=== PATIENT | male | born 1940 | race Caucasian/White ===

== ENCOUNTER 2016-11-07 16:42 | Emergency (ER) | payer MEDICARE, OTHER | END 2016-11-07 17:39 | disposition home or self-care (01) | LOC: ER 16:42 | PROC: 0HQGXZZ Repair Left Hand Skin, External Approach (ICD-10-PCS; principal; 2016-11-07) | DX: S61.012A Laceration without foreign body of left thumb without damage to nail, initial encounter (principal); Z85.46 Personal history of malignant neoplasm of prostate; Z87.891 Personal history of nicotine dependence; Y28.8XXA Contact with other sharp object, undetermined intent, initial encounter | CPT/HCPCS: 73140-LT; 90471; 90714; 99283 ==